=== PATIENT | male | born 1935 | race Caucasian/White ===

== ENCOUNTER 2016-07-21 02:16 | Inpatient (IN) | payer OTHER ==
[2016-07-16 09:59] LABS: MANUAL DIFF NEEDED? NO; URINE MICRO REVIEW NEEDED? NO; URINE SOURCE CLEAN CATCH
[2016-07-16 10:15] LABS: BASO% 0.5 % (0.0-0.8); EOS% 3.8 % (0.0-10.0); HEMATOCRIT 44.9 % (42.0-52.0); LYMPH# 1.59 X1000 (1.2-3.4); LYMPH% 19.9 % (20.5-51.1); MCH 30.9 PG (27-31); MCHC 33.4 g/dL (33-37); MCV 92.4 FL (81-99); MONO# 1.07 X1000 (0.11-0.59); MONO% 13.4 % (1.7-9.3); NEUT% 62.4 % (42.2-75.2); PLT 222 X1000 (130-400); RBC 4.86 XMIL (4.7-6.1)
[2016-07-16 10:17] LABS: INR 0.99; PROTIME 10.5 Seconds (9.2-11.7); PTT 28.2 Seconds (22.0-36.0)
[2016-07-16 10:21] LABS: UR EPITHELIAL CELLS <10 /HPF (<10); URINE BACTERIA NEGATIVE /HPF; URINE RBC <10 /HPF (<10); URINE WBC <10 /HPF (<10)
[2016-07-16 10:32] LABS: CALCIUM 9.5 mg/dL (8.8-10.2); POTASSIUM 4.5 mmol/L (3.5-5.1)
[2016-07-16 10:45] LABS: COLOR YELLOW; GLUCOSE URINE NEGATIVE (NEGATIVE); TURBIDITY URINE CLEAR (CLEAR)
[2016-07-16 10:46] LABS: BILIRUBIN URINE NEGATIVE (NEGATIVE); BLOOD URINE NEGATIVE (NEGATIVE); PROTEIN URINE NEGATIVE (NEGATIVE); UROBILINOGEN URINE 2 mg/dL (NORMAL)
[2016-07-16 10:47] LABS: LEUKOCYTES URINE NEGATIVE (NEGATIVE); NITRITE URINE NEGATIVE (NEGATIVE)
--- NOTE | 2016-07-16 15:44 | EKG Report ---
Test Performed on : 07/16/2016 09:24:04 AM Test Reason : PAT Blood Pressure : / mmHG Vent. Rate : 048 BPM Atrial Rate : 048 BPM P-R Int : 238 ms QRS Dur : 102 ms QT Int : 428 ms P-R-T Axes : 060 067 034 degrees QTc Int : 382 ms Sinus bradycardia. with 1st degree AV block. Otherwise normal ECG When compared with ECG of 03-DEC-2015 23:07, Right bundle branch block is no longer present Confirmed by Nadir Wilson MD ([id number]) on 07/16/2016 9:49:07 PM
[2016-07-21] MEDS ORDERED: PEPCID ONE (05:57)
[2016-07-21] MEDS ORDERED: REGLAN ONE (05:57)
[2016-07-21] MEDS ORDERED: CELEBREX ONE (05:57)
[2016-07-21] MEDS ORDERED: LYRICA ONE (05:57)
[2016-07-21] MEDS ORDERED: LR 1,000 ML ONE ×4 (05:57→10:37)
[2016-07-21] MEDS ORDERED: COLACE ONE (05:57)
[2016-07-21] MEDS ORDERED: KEFZOL 2 GM/D5W 50 ML ONE (05:58)
[2016-07-21] MEDS ORDERED: DURAMORPH ONE (06:58)
[2016-07-21] MEDS ORDERED: CYKLOKAPRON 1,000 MG/NS 100 ML ONE (06:58)
[2016-07-21] MEDS ORDERED: TORADOL ONE (06:58)
[2016-07-21] MEDS ORDERED: MARCAINE 0.25% PF/EPI 1:200,000 ONE (06:58)
[2016-07-21] MEDS ORDERED: SODIUM CHLORIDE 0.9% ONE (06:58)
[2016-07-21] MEDS ORDERED: EXPAREL 1.3% ONE (06:59)
[2016-07-21] MEDS ORDERED: CLAVE SECONDARY SET 11953 ONE (06:59)
[2016-07-21] MEDS ORDERED: NEOSPORIN G.U. IRRIGANT ONE (06:59)
[2016-07-21 08:41] LABS: URINE MICRO REVIEW NEEDED? NO; URINE SOURCE CATH
[2016-07-21 08:46] LABS: BILIRUBIN URINE NEGATIVE (NEGATIVE); BLOOD URINE NEGATIVE (NEGATIVE); COLOR YELLOW; GLUCOSE URINE NEGATIVE (NEGATIVE); LEUKOCYTES URINE NEGATIVE (NEGATIVE); NITRITE URINE NEGATIVE (NEGATIVE); PROTEIN URINE NEGATIVE (NEGATIVE); SP GRAVITY URINE 1.013; TURBIDITY URINE CLEAR (CLEAR); UR EPITHELIAL CELLS <10 /HPF (<10); URINE BACTERIA NEGATIVE /HPF; URINE RBC <10 /HPF (<10); URINE WBC <10 /HPF (<10); UROBILINOGEN URINE NORMAL (NORMAL)
[2016-07-21] MEDS ORDERED: NS 1,000 ML ONE (09:20)
[2016-07-21] MEDS ORDERED: OXY IR PO PRN (09:27)
[2016-07-21] MEDS ORDERED: ZOFRAN IV PRN (09:27)
[2016-07-21] MEDS ORDERED: MORPHINE IV PRN (09:27)
[2016-07-21] MEDS ORDERED: AMBIEN PO PRN (09:28)
[2016-07-21] MEDS ORDERED: FENTANYL ONE (09:39)
[2016-07-21] MEDS ORDERED: DIPRIVAN 1% ONE (09:40)
[2016-07-21] MEDS ORDERED: SODIUM CHLORIDE 0.9% 20 ML ONE (10:36)
[2016-07-21] MEDS ORDERED: NEO-SYNEPHRINE ONE (10:36)
[2016-07-21] MEDS ORDERED: EPHEDRINE ONE (10:36)
[2016-07-21] MEDS ORDERED: ROBINUL ONE (10:37)
--- NOTE | 2016-07-21 12:11 | OPERATIVE NOTE ---
PROCEDURE DATE: 07/21/2016 PREOPERATIVE DIAGNOSIS: Left hip degenerative joint disease. POSTOPERATIVE DIAGNOSIS: Left hip degenerative joint disease. PROCEDURE PERFORMED: Left hip total hip arthroplasty using a Compton trident size 58 hemispherical shell, two 6.5 cancellous screws of 25 mm in length, and an Accolade 2 high offset size 5 stem with a -5 neck length, 36 mm head. ANESTHESIA: Spinal. SURGEON: Robert Mcdonough MD PUBLIC HEALTH SERVICE OFFICER: 1. SOLOMON Armstrong 2. Kyle Alcocer RN COMPLICATIONS: None. BLOOD LOSS: Minimal. DRAINS: Hemovac x1. DESCRIPTION OF PROCEDURE: The patient was brought to the operative suite and placed in supine position. After successful administration of spinal anesthesia, the patient placed on the OSI table in the usual position for left hip. The left hip was then prepped and draped in the usual sterile fashion. A longitudinal incision was made beginning 2 cm distal and 2 cm lateral to the anterior superior iliac spine, extending distally and slightly laterally 8 cm. It was dissected sharply through the skin and subcutaneous tissue down to the tensor fascia. The tensor fascia was incised and dissected bluntly down to the deep tensor fascia. The deep tensor fascia was incised and the circumflex vessels were electrocauterized exposing the anterior capsule. A T-capsulotomy was performed exposing the femoral neck and the femoral neck cut was made with an oscillating saw. The femoral head was removed with the power corkscrew. The labrum was resected. The acetabulum was serially reamed to 57 to accept a 58 cup. The 58 cup was then driven into place in the proper amount inclination and anteversion and two 6.5 cancellous screws were placed superiorly and superior posteriorly. The polyethylene liner was then locked onto the cup after verifying that the cup was in excellent position on fluoroscopy with the proper amount of inclination and anteversion. Attention was then directed to the femur. The femur was externally rotated, extended, abducted, and elevated out of the wound with the hook on the OSI bed. The lateral neck was rongeured. The canal was serially broached to a size 5. A size 5 high offset, -5 trial was found to be the best fit, leg length, and offset. Once this was completed, the trial was removed. The definitive stem was driven into the femoral shaft. Once it was seated in the femur, the -5, 36 mm head was locked onto the Blanc taper and then the hip was reduced. It was again found to be in excellent position. The hip was copiously infiltrated with Exparel including the posterior capsule, anterior capsule, anterior musculature, and subcutaneous tissue. The anterior capsule was repaired #2 FiberWire. The tensor fascia was closed with 0 Vicryl. Skin edge approximated with 2-0 Vicryl. Skin was closed with skin eric and a sterile dressing was applied. The patient tolerated the procedure well without complication. At the end of the procedure, all counts correct x2. The patient was transferred to the recovery room in stable condition.
[2016-07-21] MEDS: TYLENOL PO SCH ×3 (12:27→23:13)
[2016-07-21] MEDS: ULTRAM PO SCH ×3 (12:28→23:13)
[2016-07-21] MEDS ORDERED: CYKLOKAPRON 1,000 MG in NS 100 ML IV ONE (13:51)
[2016-07-21] MEDS: KEFZOL 2 GM/D5W 50 ML IV SCH ×2 (16:14→23:13)
[2016-07-21] MEDS: NS 1,000 ML IV SCH ×2 (16:18→21:16)
[2016-07-21] MEDS ORDERED: SAPHRIS SL SCH (21:00)
[2016-07-21] MEDS: XALATAN 0.005% OPH SOLN OPH SCH (21:16)
[2016-07-21] MEDS: PERIDEX MT SCH (21:16)
[2016-07-21] MEDS: MELATONIN PO SCH (21:16)
[2016-07-21] MEDS: LIPITOR PO SCH (21:17)
[2016-07-21] MEDS: COLACE PO SCH (21:17)
[2016-07-21] MEDS: LYRICA PO SCH (21:17)
[2016-07-21] MEDS ORDERED: AYR NASAL DROPS NAS PRN (22:18)
[2016-07-22] MEDS: NS 1,000 ML IV SCH (01:15)
[2016-07-22] MEDS: ULTRAM PO SCH ×3 (04:59→20:52)
[2016-07-22] MEDS: TYLENOL PO SCH ×3 (04:59→20:52)
[2016-07-22] MEDS: XARELTO PO SCH (04:59)
[2016-07-22 05:50] LABS: HEMATOCRIT 35.3 % (42.0-52.0); HEMOGLOBIN 11.7 g/dL (14.0-18.0)
[2016-07-22 05:57] LABS: POTASSIUM 4.4 mmol/L (3.5-5.1)
--- NOTE | 2016-07-22 08:52 | PROGRESS NOTE ---
DATE: 07/22/2016 SUBJECTIVE: Aureliano Sandy is an 81-year-old male who is postoperative day 1 from a left anterior total hip arthroplasty. He has no complaints. OBJECTIVE: He is a well-developed, well-nourished male. He is alert, oriented and cooperative with exam. His vital signs are stable. He is afebrile. His dressing is clean, dry, and intact. His leg is neurovascularly intact without signs of infection or deep venous thrombosis. His hematocrit is 35.3%. ASSESSMENT: Satisfactory postoperative day 1 visit from a left anterior total hip arthroplasty. PLAN: Will continue to working on physical therapy with him. He will likely go to rehab later in the week. We have removed his drain, his Ruiz and discontinued his IV fluids and will change his dressing today.
[2016-07-22] MEDS ORDERED: DECADRON IV ONE (09:00)
[2016-07-22] MEDS ORDERED: SAPHRIS SL SCH (09:00)
[2016-07-22] MEDS: VITAMIN D PO SCH (09:57)
[2016-07-22] MEDS: PERIDEX MT SCH ×2 (09:57→20:51)
[2016-07-22] MEDS: OCUVITE LUTEIN & ZEAXANTHIN PO SCH (09:58)
[2016-07-22] MEDS: PAXIL PO SCH (09:58)
[2016-07-22] MEDS: INDERAL LA PO SCH (09:58)
[2016-07-22] MEDS: CELEBREX PO SCH ×2 (09:59→20:53)
[2016-07-22] MEDS: JANUVIA PO SCH (09:59)
[2016-07-22] MEDS: SAPHRIS SL SCH ×2 (09:59→20:51)
[2016-07-22] MEDS: PRILOSEC PO SCH (09:59)
[2016-07-22] MEDS: COLACE PO SCH ×2 (09:59→20:51)
[2016-07-22] MEDS: LYRICA PO SCH ×2 (11:34→20:55)
--- NOTE | 2016-07-22 13:49 | Diag Imaging Result Document ---
PROCEDURE NAME: CHEST-PORTABLE - 07/22/2016 PORTABLE CHEST X-RAY: COMPARISON: 12/03/2015. FINDINGS: There is some slightly increasing linear atelectasis in the left lateral costophrenic angle. Otherwise, no focal infiltrates, pneumothorax, or significant effusion. Heart size and pulmonary vascularity is normal. IMPRESSION: Micro atelectasis in the left lung base.
[2016-07-22] MEDS: XALATAN 0.005% OPH SOLN OPH SCH (20:49)
[2016-07-22] MEDS: LIPITOR PO SCH (20:52)
[2016-07-22] MEDS: MELATONIN PO SCH (20:53)
[2016-07-22] MEDS: MILK OF MAGNESIA PO PRN (20:55)
[2016-07-23] MEDS: TYLENOL PO SCH ×5 (02:48→20:37)
[2016-07-23] MEDS: ULTRAM PO SCH ×5 (03:28→20:38)
[2016-07-23] MEDS: XARELTO PO SCH (06:01)
[2016-07-23 07:10] LABS: HEMATOCRIT 34.8 % (42.0-52.0); HEMOGLOBIN 11.7 g/dL (14.0-18.0)
[2016-07-23] MEDS: INDERAL LA PO SCH (08:17)
[2016-07-23] MEDS: PERIDEX MT SCH ×2 (08:17→20:37)
[2016-07-23] MEDS: VITAMIN D PO SCH (08:17)
[2016-07-23] MEDS: JANUVIA PO SCH (08:18)
[2016-07-23] MEDS: CELEBREX PO SCH ×2 (08:18→20:37)
[2016-07-23] MEDS: LYRICA PO SCH ×2 (08:19→20:38)
[2016-07-23] MEDS: PAXIL PO SCH (08:19)
[2016-07-23] MEDS: OCUVITE LUTEIN & ZEAXANTHIN PO SCH (08:19)
[2016-07-23] MEDS: PRILOSEC PO SCH (08:19)
[2016-07-23] MEDS: COLACE PO SCH ×2 (08:19→20:38)
[2016-07-23] MEDS: SAPHRIS SL SCH ×2 (12:21→20:39)
--- NOTE | 2016-07-23 13:02 | PROGRESS NOTE ---
DATE: 07/23/2016 SUBJECTIVE: Aureliano Sandy is an 81-year-old male, who is postoperative day 2 from a left total hip arthroplasty. He has no complaints. OBJECTIVE: General Appearance: He is well-developed, well-nourished male. He is alert and cooperative with exam. His dressing is clean, dry, and intact. His leg is neurovascularly intact without sign of infection. His hematocrit is 34.8%. He has walked 500 feet. ASSESSMENT: Stable left total hip arthroplasty. PLAN: We will plan on him going to rehab tomorrow. He is doing well.
[2016-07-23] MEDS: XALATAN 0.005% OPH SOLN OPH SCH (20:37)
[2016-07-23] MEDS: MELATONIN PO SCH (20:38)
[2016-07-23] MEDS: LIPITOR PO SCH (20:38)
[2016-07-24] MEDS: TYLENOL PO SCH ×2 (03:40→09:45)
[2016-07-24] MEDS: ULTRAM PO SCH ×2 (03:40→09:45)
[2016-07-24] MEDS: XARELTO PO SCH (06:05)
[2016-07-24 07:02] LABS: HEMATOCRIT 34.2 % (42.0-52.0); HEMOGLOBIN 11.3 g/dL (14.0-18.0)
--- NOTE | 2016-07-24 08:50 | DISCHARGE SUMMARY ---
ADMISSION DATE: 07/21/2016 DISCHARGE DATE: 07/24/2016 DISCHARGE DIAGNOSIS: Left hip degenerative joint disease, status post left anterior total hip arthroplasty. DISCHARGE MEDICATIONS: See discharge medication list. DISPOSITION: Patient discharged to rehab with instructions for anterior total hip arthroplasty protocol with no hip precautions. Instructed to return for any signs or symptoms of infection or deep venous thrombosis. Instructed to remove eric in 10 days. HOSPITAL COURSE: On the day of admission, patient underwent a left anterior total hip arthroplasty. His postoperative course was unremarkable. At discharge, he is afebrile, tolerating a regular diet, ambulating well with physical therapy. His wound is clean, dry, intact without sign of infection. He is discharged to rehab in stable condition. He was instructed to follow up as described above.
[2016-07-24] MEDS: PERIDEX MT SCH (09:44)
[2016-07-24] MEDS: INDERAL LA PO SCH (09:44)
[2016-07-24] MEDS: VITAMIN D PO SCH (09:44)
[2016-07-24] MEDS: SAPHRIS SL SCH (09:45)
[2016-07-24] MEDS: JANUVIA PO SCH (09:45)
[2016-07-24] MEDS: CELEBREX PO SCH (09:45)
[2016-07-24] MEDS: PRILOSEC PO SCH (09:45)
[2016-07-24] MEDS: COLACE PO SCH (09:45)
[2016-07-24] MEDS: LYRICA PO SCH (09:45)
[2016-07-24] MEDS: OCUVITE LUTEIN & ZEAXANTHIN PO SCH (09:45)
[2016-07-24] MEDS: PAXIL PO SCH (09:46)
[2016-07-24] MEDS: MILK OF MAGNESIA PO PRN (11:12)
[2016-07-24 11:29] VITALS: BP 131/73
== END 2016-07-24 13:08 | DRG 470 ==
LOC: SURHOLD 02:16 → 4N 08:48 → DIRADM 07-22 11:22 → 4N 07-22 11:28 → DIRADM 07-22 14:51 → 4N 07-22 14:56
PROVIDERS: ADMIT Orthopaedic Surgery; ATTEND Orthopaedic Surgery
PROC: 0SRB04A Replacement of Left Hip Joint with Ceramic on Polyethylene Synthetic Substitute, Uncemented, Open Approach (ICD-10-PCS; principal; 2016-07-21 07:18)
DX: M15.9 Polyosteoarthritis, unspecified (principal); E11.9 Type 2 diabetes mellitus without complications; R25.1 Tremor, unspecified; H40.9 Unspecified glaucoma; Z87.891 Personal history of nicotine dependence; Z80.42 Family history of malignant neoplasm of prostate; Z83.3 Family history of diabetes mellitus; Z96.651 Presence of right artificial knee joint; Z98.1 Arthrodesis status; Z79.899 Other long term (current) drug therapy
CPT/HCPCS: 71010; 76000; 80048; 81001; 82948; 85014; 85018; 85025; 85610; 85730; 86850; 86900; 86901; 88304; 88311; 93005; 93010; 94761; 94799; C9290; J0690; J1885; J2274; J2370; J3010; J7030; J7120; 97116-GP; 97530-GP; S0020